=== PATIENT | male | born 1955 | race Hispanic/Latino ===

== ENCOUNTER 2021-09-16 12:54 | Emergency (ER) | payer MEDICARE, OTHER ==
[~2021-09-16] VITALS: Ht 157.5 cm; Wt 69.7 kg
[~2021-09-16 12:54] MED LIST: CLEOCIN HCL300 MG PO; HYDROCODON-ACE1 EA11 PO; LEVAQUIN500 MG PO; METFORMIN HCL500 M2 PO
[2021-09-16] MEDS ORDERED: ATORVASTATIN CA10 MG PO (13:54)
[2021-09-16] MEDS ORDERED: MELOXICAM7.5 MG PO (13:54)
[2021-09-16] MEDS ORDERED: METOPROLOL SUCC25 MG PO (13:54)
[2021-09-16] MEDS ORDERED: GABAPENTIN300 MG PO (13:54)
[2021-09-16] MEDS ORDERED: CLEOCIN HCL300 MG PO (14:58)
[2021-09-16] MEDS ORDERED: DOXYCYCLINE HY100 MG PO (14:59)
[2021-09-16] MEDS ORDERED: HYDROCODON-ACE1 EA11 PO (15:04)
== END 2021-09-16 15:45 | disposition home or self-care (01) ==
LOC: FSED 14:11
DX: L02.11 Cutaneous abscess of neck (principal); E11.65 Type 2 diabetes mellitus with hyperglycemia; I10 Essential (primary) hypertension; E78.5 Hyperlipidemia, unspecified
CPT/HCPCS: 99282

== ENCOUNTER 2021-12-31 17:23 | Emergency (ER) | payer MEDICARE ==
[~2021-12-31] VITALS: Ht 157.5 cm; Wt 67.6 kg
[~2021-12-31 17:23] MED LIST changes: +ATORVASTATIN CA10 MG PO; +DOXYCYCLINE HY100 MG PO; +GABAPENTIN300 MG PO; +MELOXICAM7.5 MG PO; +METOPROLOL SUCC25 MG PO
[2021-12-31] MEDS ORDERED: HYDROCODONE/APAP 5MG-325MG TAB PO ONE (18:15)
[2021-12-31] MEDS ORDERED: HYDROCODONE/APAP 5MG-325MG TAB ONE (18:23)
[2021-12-31] MEDS ORDERED: KETOROLAC TROME10 MG PO (20:02)
== END 2021-12-31 20:10 | disposition home or self-care (01) ==
LOC: FSED 17:45
DX: M54.50 Low back pain, unspecified (principal); W19.XXXA Unspecified fall, initial encounter; I10 Essential (primary) hypertension; E11.9 Type 2 diabetes mellitus without complications; E78.5 Hyperlipidemia, unspecified
CPT/HCPCS: 72131; 99283

== ENCOUNTER 2022-03-12 08:24 | Observation (INO) | payer MEDICARE ==
[~2022-03-12] VITALS: Ht 157.5 cm; Wt 64.9 kg
[~2022-03-12 08:24] MED LIST changes: +KETOROLAC TROME10 MG PO
[2022-03-12] MEDS ORDERED: KETOROLAC TROMETHAMINE 30 MG/ML VIAL IV STA (08:57)
[2022-03-12] MEDS ORDERED: ONDANSETRON HCL INJ 2MG/ML 2ML 2 MG/ML VIAL IV STA (08:57)
[2022-03-12] MEDS ORDERED: FAMOTIDINE 20 MG/2 ML VIAL IV STA (08:57)
[2022-03-12] MEDS ORDERED: ONDANSETRON HCL INJ 2MG/ML 2ML 2 MG/ML VIAL ONE (09:00)
[2022-03-12] MEDS ORDERED: KETOROLAC TROMETHAMINE 30 MG/ML VIAL ONE (09:00)
[2022-03-12] MEDS ORDERED: SODIUM CHLORIDE 0.9% 1000ML 1,000 ML IV ONE (09:00)
[2022-03-12] MEDS ORDERED: SODIUM CHLORIDE 0.9% 1000ML 1,000 ML ONE (09:00)
[2022-03-12] MEDS ORDERED: FAMOTIDINE 20 MG/2 ML VIAL IV ONE (09:01)
[2022-03-12] MEDS ORDERED: ONDANSETRON HCL INJ 2MG/ML 2ML 2 MG/ML VIAL IV PRN (11:15)
[2022-03-12] MEDS ORDERED: ASPIRIN 81 MG CHEW TAB PO ONE (11:15)
[2022-03-12] MEDS ORDERED: OMEPRAZOLE40 MG PO (14:53)
[2022-03-12] MEDS ORDERED: FLOMAX0.4 MG PO (14:53)
[2022-03-12] MEDS ORDERED: LISINOPRIL5 MG PO ×2 (14:53→21:05)
[2022-03-12] MEDS ORDERED: ACETAMINOPHEN 325 MG TAB PO PRN (15:00)
[2022-03-12] MEDS ORDERED: CITRATE OF MAGNESIA 300ML BOTTLE PO ONE (15:00)
[2022-03-12] MEDS ORDERED: HYDRALAZINE HCL 20 MG/ML VIAL IV PRN (15:15)
[2022-03-12] MEDS ORDERED: DEXTROSE 50% SYRINGE 50 ML IV PRN (15:15)
[2022-03-12] MEDS: INSULIN LISPRO 100 UNIT/1 ML 3ML VIAL SQ SCH ×2 (16:30→21:00)
[2022-03-12 17:06] VITALS: BP 167/95
[2022-03-12 17:36] VITALS: BP 167/95
[2022-03-12 17:54] VITALS: BP 167/95
[2022-03-12] MEDS: LISINOPRIL 2.5 MG TAB PO SCH (18:16)
[2022-03-12] MEDS: BISACODYL 10 MG SUPP PR ONE ×2 (18:17→18:19)
[2022-03-12 20:00] VITALS: BP 149/75
[2022-03-12] MEDS ORDERED: SODIUM CHLORIDE 0.9% 250ML 250 ML ONE (20:20)
[2022-03-12] MEDS ORDERED: TIZANIDINE HCL4 MG PO (20:56)
[2022-03-12] MEDS ORDERED: ULTRAM 50MG50 MG PO (20:56)
[2022-03-12] MEDS ORDERED: DULOXETINE HCL30 MG PO (20:56)
[2022-03-12] MEDS ORDERED: METFORMIN HCL1000 MG PO (20:56)
[2022-03-12] MEDS ORDERED: MELOXICAM15 MG PO (20:56)
[2022-03-12] MEDS ORDERED: GLIPIZIDE-METF1 EAC2 PO (20:56)
[2022-03-12 21:00] VITALS: BP 149/75
[2022-03-12 21:06] LABS: CREATINE KINASE 107 IU/L (30-200)
[2022-03-12] MEDS ORDERED: LEVOTHYROXINE25 MCG PO (21:07)
[2022-03-12] MEDS ORDERED: PEG (High)/E-LYTE SOLN 4,000 ML BTL PO ONE ×2 (22:30→23:00)
[2022-03-12] MEDS ORDERED: BISACODYL 10 MG SUPP PR ONE (22:30)
[2022-03-12] MEDS ORDERED: MINERAL OIL 132 ML BTL PR ONE (23:00)
[2022-03-13 00:30] VITALS: BP 141/81
[2022-03-13 04:00] VITALS: BP 145/74
[2022-03-13 06:47] LABS: BASOPHILS # (AUTO) 0.1 (0.0-0.1); BASOPHILS % 0.5 % (0.0-1.0); EOSINOPHILS % 0.2 % (0.0-6.0); HEMATOCRIT 40.2 % (38.2-49.6); HEMOGLOBIN 13.9 g/dL (14.0-18.0); LYMPHOCYTES # (AUTO) 1.2 (1.0-3.2); LYMPHOCYTES % 9.3 % (18.0-39.1); MEAN CORPUSCULAR HGB CONC 34.6 g/dL (31-35); MEAN CORPUSCULAR VOLUME 89.7 fL (81-99); MONOCYTES # (AUTO) 0.9 (0.2-0.8); MONOCYTES % 6.9 % (4.4-11.3); NEUTROPHILS # (AUTO) 10.2 (2.1-6.9); NEUTROPHILS % 82.4 % (38.7-80.0); PLATELET COUNT 208 x10e3/uL (140-360); RED BLOOD COUNT 4.48 x10e6/uL (4.3-5.7); RED CELL DISTRIBUTION WIDTH 12.3 % (11.7-14.4)
[2022-03-13 07:17] LABS: CALCIUM 8.8 mg/dL (8.4-10.2); CREATININE, SERUM 0.77 mg/dL (0.72-1.25); MAGNESIUM 2.1 MG/DL (1.3-2.1)
[2022-03-13] MEDS: INSULIN LISPRO 100 UNIT/1 ML 3ML VIAL SQ SCH ×2 (07:30→11:30)
[2022-03-13 08:03] VITALS: BP 132/76
[2022-03-13 08:15] LABS: CREATINE KINASE MB 2.2 ng/mL (0-5.0)
[2022-03-13 08:22] VITALS: BP 132/76
[2022-03-13] MEDS: LISINOPRIL 2.5 MG TAB PO SCH (08:45)
[2022-03-13] MEDS ORDERED: FAMOTIDINE 20 MG/2 ML VIAL IV SCH (09:00)
[2022-03-13 11:13] VITALS: BP 123/83
[2022-03-13] MEDS ORDERED: MIRALAX17 GM PO (13:48)
[2022-03-13] MEDS ORDERED: DOCUSATE SODIU100 MG PO (13:48)
[2022-03-13] MEDS ORDERED: ONDANSETRON HCL 4 MG ORAL DISINTEGRATING TAB PO PRN (14:00)
[2022-03-13 16:09] VITALS: BP 126/76
== END 2022-03-13 15:50 | disposition home or self-care (01) ==
LOC: FSED 08:51 → ERHOLD 11:07 → MED/SURG2 14:56
PROVIDERS: ADMIT Internal Medicine; ATTEND Internal Medicine
DX: K56.690 Other partial intestinal obstruction (principal); I10 Essential (primary) hypertension; E11.9 Type 2 diabetes mellitus without complications; E78.5 Hyperlipidemia, unspecified; I25.10 Atherosclerotic heart disease of native coronary artery without angina pectoris; Z82.49 Family history of ischemic heart disease and other diseases of the circulatory system; Z20.822 Contact with and (suspected) exposure to COVID-19
CPT/HCPCS: 36415; 74018; 74176; 80048; 80076; 81003; 82550; 82553; 82948; 83735; 84484; 85025; 93005; 96374; 96375; 96376; 99285; G0378; J1885; J2405; J7030; J7050

== ENCOUNTER → 2024-07-09 | Outpatient (REF) | payer OTHER ==
[~2024-07-09] MED LIST changes: +DOCUSATE SODIU100 MG PO; +DULOXETINE HCL30 MG PO; +FLOMAX0.4 MG PO; +GLIPIZIDE-METF1 EAC2 PO; +LEVOTHYROXINE25 MCG PO; +LISINOPRIL5 MG PO; +MELOXICAM15 MG PO; +METFORMIN HCL1000 MG PO; +MIRALAX17 GM PO; +OMEPRAZOLE40 MG PO; +TIZANIDINE HCL4 MG PO; +ULTRAM 50MG50 MG PO
== END ==
LOC: RAD 14:14
PROVIDERS: ATTEND Surgery Vascular Surgery
DX: I83.813 Varicose veins of bilateral lower extremities with pain (principal)
CPT/HCPCS: 93970